=== PATIENT | male | born 1955 ===

== ENCOUNTER 2016-11-18 09:47 | Emergency (ER) | payer OTHER ==
[2016-11-18 09:56] VITALS: O2SAT 98
[2016-11-18] MEDS ORDERED: Morphine 4 mg/ml ISec IM STA (10:09)
[2016-11-18] MEDS ORDERED: TDAP Vaccine 0.5 mL Syr IM ONE (10:09)
[2016-11-18] MEDS ORDERED: Silver Sulfadiazine 1% Cream (20 gm) TOP STA (10:10)
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
[2016-11-18 12:29] VITALS: BP 136/71; PULSE 83; RESP 19; TEMP 97.6
== END 2016-11-18 12:33 | disposition home or self-care (01) ==
LOC: ED 09:47
DX: T24.102A Burn of first degree of unspecified site of left lower limb, except ankle and foot, initial encounter (principal); T24.101A Burn of first degree of unspecified site of right lower limb, except ankle and foot, initial encounter; X13.1XXA Other contact with steam and other hot vapors, initial encounter; Y93.89 Activity, other specified; Y92.89 Other specified places as the place of occurrence of the external cause; Y99.0 Civilian activity done for income or pay; Z23 Encounter for immunization
CPT/HCPCS: 16020; 90471; 90715; 96372; 99284; J2270